=== PATIENT | female | born 1945 | race Caucasian/White ===

== ENCOUNTER → 2016-07-03 | Outpatient (CLI) | payer OTHER ==
--- NOTE | 2016-07-03 11:17 | DX ---
Hip Unilateral Min 2 Views Right History: SUBACUTE PAIN R HIP WITH DX OF SQUAMOUS CELL LUNG CANCER AND CONCERN FOR OCCULT FX OR METS VS OTHER Findings: Moderate joint space narrowing is present centrally. No fracture. Impression: Moderate osteoarthritis, right hip.
== END ==
LOC: GIMAGING 10:25
PROVIDERS: ATTEND Family Medicine
DX: M25.551 Pain in right hip (principal); M16.11 Unilateral primary osteoarthritis, right hip; C34.90 Malignant neoplasm of unspecified part of unspecified bronchus or lung
CPT/HCPCS: 73502-PO

== ENCOUNTER 2016-07-08 10:28 | Inpatient (IN) | payer OTHER ==
[2016-07-08] MEDS ORDERED: ONDANSETRON 4 MG/2 ML VIAL IVP ONE (11:46)
[2016-07-08 12:01] LABS: % IMMATURE GRANULYOCYTES 1.2 % (0.0-1.1); ABSOLUTE IMMATURE GRANULOCYTES 0.17 10^3/uL (0.00-0.10); ADD DIFF? NO; ADD MORPH? NO; ADD SCAN? NO; ATYPICAL LYMPHOCYTE FLAG 20 (0-99); FRAGMENT RBC FLAG 0 (0-99); HEMOGLOBIN 9.2 g/dL (12.6-16.3); LEFT SHIFT FLG 0 (0-99); LIPEMIA HEMOLYSIS FLAG 80 (0-99); MEAN CELL HEMOGLOBIN 29.2 pg (27.9-34.1); MEAN CELL HEMOGLOBIN CONCENTR. 31.7 g/dL (32.4-36.7); MEAN CELL VOLUME 92.1 fL (81.5-99.8); MEAN PLATELET VOLUME 8.9 fL (8.7-11.7); PLATELET CLUMPS FLAG 0 (0-99); PLATELET COUNT 379 10^3/uL (150-400); RED BLOOD CELL COUNT 3.15 10^6/uL (4.18-5.33); RED CELL DISTRIBUTION WIDTH 19.9 % (11.5-15.2)
[2016-07-08 12:11] LABS: POTASSIUM 3.8 mEq/L (3.5-5.2)
[2016-07-08 12:12] LABS: ANION GAP 9 mEq/L (8-16); CARBON DIOXIDE 26 mEq/l (22-31); CHLORIDE 98 mEq/L (97-110); CREATININE 0.7 mg/dL (0.6-1.0); GLOMERULAR FILTRATION RATE > 60; GLUCOSE 95 mg/dL (70-100); SODIUM 133 mEq/L (134-144)
--- NOTE | 2016-07-08 14:09 | EDPHY ---
H & P Smoking Status: Former smoker Time Seen by Provider: 07/08/16 10:45 HPI/ROS: CHIEF COMPLAINT: Right hip pain HISTORY OF PRESENT ILLNESS: 70-year-old female presents to the emergency department with and son complaining of severe ongoing pain in her right hip for several months. She denies any known trauma or injury. She has a history of small cell carcinoma that was treated most recently with chemotherapy. She became extremely thrombocytopenic and per her son, Dr. Roger Nieves, the patient is no longer going to undergo chemo as she did not tolerate this. She denies back pain. She has pain in her right hip especially when she tries to bear weight or walk. She lives independently with her . She denies chest pain or difficulty breathing. Denies headache. Denies bowel or bladder incontinence. Denies numbness or tingling in upper or lower extremities. The states that she has not been eating much lately. She has had weight loss. Yesterday she had 3 cans of Ensure and nothing else to eat. The and son are both worried that she is not doing well at home. REVIEW OF SYSTEMS: Constitutional: No fever, no chills. Eyes: No double or blurry vision. ENT: No sore throat. Respiratory: No cough, no shortness of breath. Cardiac: No chest pain. Gastrointestinal: No abdominal pain, vomiting or diarrhea. Genitourinary: No dysuria. Musculoskeletal: Right hip pain as above. No neck or back pain. Skin: No rashes. Neurological: No headache. (Ruthy Carreon) Past Medical/Surgical History: Small cell carcinoma diagnosed in 2014 treated with 2 rounds of chemotherapy, hypothyroidism (Ruthy Carreon) Social History: and lives independently with her (Ruthy Carreon) Physical Exam: General Appearance: Alert, no distress. 130/65 Eyes: Pupils equal and round. Extraocular motions are all intact. ENT: Mouth: Mucous membranes moist. Respiratory: No wheezing, rhonchi, or rales, lungs are clear to auscultation. Cardiovascular: Regular rate and rhythm. Gastrointestinal: Abdomen is soft and nontender, no masses, no rebound or guarding, bowel sounds normal. Neurological: Alert and oriented x 3, cranial nerves II through XII grossly intact Skin: Warm and dry, no rashes. Musculoskeletal: Nontender to palpate along the cervical, thoracic or lumbar spine. Neck is supple. Extremities: Full range of motion and no peripheral edema. Straight leg raise is negative bilaterally. Full range of motion of her right hip, knee and ankle without pain or difficulty. Her gait is not tested. Psychiatric: Patient is oriented X 3, there is no agitation. (Ruthy Carreon) Constitutional: Initial Vital Signs Blood Pressure 130/65 H 07/08/16 10:32 O2 Delivery Mode Room Air O2 (L/minute) 1.5 Allergies/Adverse Reactions: Penicillins Allergy (Intermediate, Verified 07/08/16 10:38) Hives Sulfa (Sulfonamide Antibiotics) Allergy (Mild, Verified 07/08/16 10:38) RASH/ITCH Home Medications: Medication Instructions Recorded Acetaminophen [Tylenol ES 500 mg 500 mg PO TID PRN 07/08/16 (*)] Codeine Sulfate [CODEINE SULFATE] 15 mg PO HS 07/08/16 Diclofenac Sodium [Voltaren] 1 g TP QID PRN 07/08/16 Levothyroxine [Synthroid 88 mcg 88 mcg PO DAILY06 07/08/16 (*)] Promethazine HCl [Phenergan 25mg 25 mg PO PRN PRN 07/08/16 (*)] Medical Decision Making - Diagnostics Imaging: MRI of the right hip reveals no obvious fracture. No osteolytic or metastatic lesions. This was reported to me by Dr. Emir Baldwin at 2:00 p.m.. (Ruthy Carreon ) ED Course/Re-evaluation: 70-year-old female presents with right hip pain. Denies any known trauma or injury. She does have a history of small-cell cancer. Patient had negative x- rays of her right hip revealing osteoarthritis 2 days ago. Patient has not had any additional imaging of her right hip. The patient is now having difficulty getting around. She has not had much of an appetite because the pain in her right hip. The patient was given 2 mg of IV morphine x2 for pain relief. CBC reveals signs of anemia however this is chronic. Platelet count is normal. (Ruthy Carreon) I did not see this patient while she was in the emergency department. However her care was discussed with the PA while the patient was in the department. I agree with treatment plan and management (Tino Butler) Differential Diagnosis: 70-year-old female presents with severe right hip pain. She is having difficulty getting around. She has not been eating or doing well on her own at home. MRI of the right hip revealed no obvious fractures. No osteolytic or metastatic lesions. I talked with the patient as well as family at bedside regarding admission to the hospital versus discharge home. Because the patient continues to have ongoing pain in her right hip and is having difficulty getting around at home, I recommended admission to the hospital. Family agrees. Also think that further workup including possible MRI of her lumbar spine may be necessary since cause for her right hip pain was not found on MRI of her right hip. Patient will be admitted to Dr. Yoan Olsen to the medical-surgical floor. (Ruthy Carreon) - Data Points Laboratory Results: Laboratory Results 07/08/16 11:25 07/08/16 11:25 Medications Given: Discontinued Medications Ketorolac Tromethamine (Toradol) 30 mg IVP ONCE ONE Stop: 07/08/16 15:06 Last Admin: 07/08/16 15:47 Dose: 30 mg Morphine Sulfate (Morphine) 2 mg IVP EDNOW ONE Stop: 07/08/16 11:47 Last Admin: 07/08/16 12:10 Dose: 2 mg Morphine Sulfate (Morphine) 2 mg IVP EDNOW ONE Stop: 07/08/16 12:40 Last Admin: 07/08/16 12:40 Dose: 2 mg Ondansetron HCl (Zofran) 4 mg IVP EDNOW ONE Stop: 07/08/16 11:47 Last Admin: 07/08/16 12:10 Dose: 4 mg Departure - Departure Disposition: [facility] Inpatient Acute Clinical Impression: Right hip pain, Squamous cell carcinoma of right lung Condition: Good
[2016-07-08] MEDS ORDERED: PROMETHAZINE HCL 25 MG/ML INJ IVP PRN (15:05)
[2016-07-08] MEDS ORDERED: KETOROLAC 30 MG/1 ML SDV IVP ONE (15:05)
[2016-07-08] MEDS ORDERED: ACETAMINOPHEN 325 MG TAB PO PRN (15:05)
[2016-07-08] MEDS ORDERED: ONDANSETRON 4 MG/2 ML VIAL IVP PRN (15:05)
[2016-07-08 15:21] LABS: SEDIMENTATION RATE 145 MM/HR (0-30)
[2016-07-08] MEDS: HYDROCODONE/APAP 5/325 TAB PO PRN ×2 (15:46→22:32)
--- NOTE | 2016-07-08 16:08 | GHP ---
[f rep st] HISTORY AND PHYSICAL DATE OF ADMISSION: 07/08/2016 CHIEF COMPLAINT: Right hip pain. HISTORY OF PRESENT ILLNESS: This is a 70-year-old female with history of small cell carcinoma of th e lung, diagnosed in 2014, treated with 2 rounds of chemotherapy as well as radiation and left lobec mag, who presents to the emergency department today with worsening right hip pain. The patient has had chronic hip pain, however, over the past 24 hours she has gotten to the point where she is unab le to ambulate at home. She has tried taking 5 mg of hydrocodone without any help. She has also tr ied diclofenac cream as well as a Lidoderm patch. She denies any recent trauma. She denies any num bness or weakness in her leg. The pain is worse with ambulation and gets better with rest. The patient was resumed on chemotherapy about 3 months ago and has lost 30 pounds since. She is fol lowed by Dr. Garay, who has since stopped her on traditional chemotherapy and has referred her to Dr. Spear at the [facility] to consider immunotherapy in a study. PAST MEDICAL HISTORY: 1. Squamous cell carcinoma of the lung treated in 2014. 2. Hypothyroidism. PAST SURGICAL HISTORY: 1. Medication port placement. 2. Left lobectomy. 3. Total abdominal hysterectomy. HOME MEDICATIONS: Reviewed. Refer to [facility] for details. ALLERGIES: Penicillin and sulfa. SOCIAL HISTORY: The patient lives independently with her in [place]. Her son, Dr. Roger alaniz, in the primary care provider in [place]. She has a 30 pack-year history of smoking, but quit some time ago. She denies any alcohol or illicit drug use. FAMILY HISTORY: Reviewed and noncontributory. REVIEW OF SYSTEMS: Comprehensive 10-point review of systems was done and is negative except for as mentioned in the HPI. PHYSICAL EXAMINATION: VITAL SIGNS: Blood pressure 128/79, pulse of 100, respiratory rate 16, O2 sa turation 89% on room air, 98% on 1.5 L. Temperature was not recorded. HEAD: Normocephalic, atraum atic. EYES: PERRLA. Sclerae anicteric. MOUTH: Moist mucous membranes. NECK: Supple. No lymph adenopathy. CARDIOVASCULAR: S1, S2. No JVD. No lower extremity edema. PULMONARY: Lungs are suleiman ar. No wheezes, rales, or rhonchi. ABDOMEN: Soft, nontender, nondistended. No guarding or reboun d tenderness. Normoactive bowel sounds. EXTREMITIES: No clubbing or cyanosis. NEURO: Cranial ne rves 2-12 grossly intact. No focal motor or sensory deficits. MUSCULOSKELETAL: Negative MARK joseline t on the right. There is no pain with passive range of motion of the right hip. There is equivocal straight leg raising test on the right. NEUROLOGIC: Cranial nerves 2-12 grossly intact. Like I s aid before, DTRs are symmetric, 2+ at the patella, with no hyperreflexia. DIAGNOSTICS: WBC 13.9, hemoglobin 9.2, hematocrit 29, platelets 379. Sodium 133, potassium 3.8, ch loride 98, BUN 15, creatinine 0.7, glucose 95, MRI of the hip was done. Final read is pending. Pre liminary read was negative for obvious fracture, osteolytic, or metastatic lesions. ASSESSMENT: This is a 70-year-old female with history of small cell carcinoma of the lung, presenti ng with: 1. Failure to thrive due to below. 2. Intractable right hip pain of unclear etiology. 3. Severe protein-calorie malnutrition with 30 pounds of weight loss in the past 2 months. 4. Leukocytosis without any obvious source of infection. 5. Mild hyponatremia. 6. Mild anemia, without obvious bleeding. PLAN: 1. Admit to the oncology floor. 2. MRI of the lumbar spine to evaluate for metastatic lesions to account for referred pain to her r ight hip. 3. PT, OT evaluation. 4. Check ESR and CRP to evaluate for underlying evidence for infectious or inflammatory process cau sing her pain. 5. Oncology consultation. 6. The patient requests to be DNR status and is thinking about pursuing hospice, but the patient is still unsure of this decision. 7. Consider Orthopedic consult to consider steroid injection of the right hip if the lumbar spine d oes not reveal any lesions to see if this would help her pain. /[id number]/MODL
[2016-07-08] MEDS ORDERED: ACETAMINOPHEN 500 MG TAB PO PRN (18:53)
[2016-07-08] MEDS ORDERED: GADOBUTROL 10 ML VIAL IVP ONE (19:11)
[2016-07-09] MEDS: LEVOTHYROXINE 88 MCG TAB PO SCH (05:14)
[2016-07-09] MEDS: HYDROCODONE/APAP 5/325 TAB PO PRN ×3 (05:15→22:10)
[2016-07-09 06:14] LABS: ALANINE AMINOTRANSFERASE 35 IU/L (9-52); ALBUMIN 2.8 g/dL (3.5-5.0); ALKALINE PHOSPHATASE 88 IU/L (38-126); ANION GAP 7 mEq/L (8-16); ASPARTATE AMINOTRANSFERASE 29 IU/L (14-46); BILIRUBIN,TOTAL 0.4 mg/dL (0.1-1.4); CALCIUM 9.8 mg/dL (8.5-10.4); CARBON DIOXIDE 27 mEq/l (22-31); CHLORIDE 100 mEq/L (97-110); CREATININE 0.7 mg/dL (0.6-1.0); GLOMERULAR FILTRATION RATE > 60; GLUCOSE 94 mg/dL (70-100); SODIUM 134 mEq/L (134-144); TOTAL PROTEIN 5.9 g/dL (6.3-8.2)
[2016-07-09 06:21] LABS: HEMATOCRIT 23.9 % (38.0-47.0); HEMOGLOBIN 7.5 g/dL (12.6-16.3); MEAN CELL HEMOGLOBIN 29.3 pg (27.9-34.1); MEAN CELL HEMOGLOBIN CONCENTR. 31.4 g/dL (32.4-36.7); MEAN CELL VOLUME 93.4 fL (81.5-99.8); RED BLOOD CELL COUNT 2.56 10^6/uL (4.18-5.33); RED CELL DISTRIBUTION WIDTH 19.9 % (11.5-15.2)
[2016-07-09] MEDS ORDERED: MAGNESIUM HYDROXIDE 30 ML UDCUP PO PRN (09:57)
[2016-07-09] MEDS ORDERED: BISACODYL 10 MG SUPP PR PRN (09:57)
[2016-07-09] MEDS ORDERED: POLYETHYLENE GLYCOL 3350 17 GM PKT PO PRN (09:57)
[2016-07-09] MEDS ORDERED: LACTULOSE 20 GM/30 ML UDCUP PO PRN (09:57)
[2016-07-09] MEDS: ENOXAPARIN 40 MG/0.4 ML SYR SC SCH (10:15)
[2016-07-09] MEDS: DEXAMETHASONE 4 MG/ML VIAL IVP SCH ×2 (14:07→22:18)
[2016-07-09] MEDS: PANTOPRAZOLE SODIUM 40 MG TAB PO SCH ×2 (14:08→22:10)
--- NOTE | 2016-07-09 14:30 | GCON ---
[f rep st] CONSULTATION MEDICAL ONCOLOGY FOLLOWUP CONSULTATION DATE OF CONSULTATION: 07/09/2016 REFERRING PHYSICIAN: Hoa Renteria MD REASON FOR CONSULTATION: 1. 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 2. Pain control. RECOMMENDATIONS: 1. Agree with 1 dose of Toradol to see if that helps her pain. 2. Place her on dexamethasone 4 mg twice a day, also to see if this will help her back pain. 3. As far as antitumor therapy is concerned, she is currently being evaluated for a clinical trial at [facility]. If she is a candidate, that would be a reasonable choice. If she is not a candidate, however, and this is the only area that is symptomatic, we could consider radiation to the L3 vertebral body to try to improve her pain on a long-term basis. ASSESSMENT: This 70-year-old white female was diagnosed in the latter part of 2014 with a squamous cell carcinoma of the right lung. She had a paraspinal tumor at that time. There was also a 2 x 1 cm precarinal lymph node and small right peritracheal lymph nodes. Biopsy showed poorly differentia enoc squamous cell carcinoma. She had a lobectomy and mediastinoscopy in April 2015. The tumor w as approximately 4 cm in maximum diameter and a proximal margin was positive. She had adjuvant radi ation therapy, which completed in July 2015. In September 2015, she had an FDG avid mass develop along h er mediastinal border. She had stereotactic radiosurgery with Dr. Perry in [place] at that time. T his was completed in November 2015. Her CT scan in March 2016 showed recurrent disease in her chest. She did not have any targetable mutations, and her PD-L1 testing was low. She had an opinion with Dr. Spear at [facility], who recommended palliative chemotherapy with carboplatin and Gemzar. She received 2 cycles of chemotherapy, but unfortunately developed progressive disease in the right hilum. Over the past couple of months, she has had increasing pain in her low right back and right hip. It has not been radiating down her leg. She has also had 25-30 pounds weight loss, which she attribut es to pain and not being hungry. She is now here for pain control and further evaluation. The MRI of her lumbar spine shows a lesion in the right side of L3 with some foraminal impingement. This lesion is consistent with metastatic disease. I think taking a 2-pronged approach is appropri ate. 1. First would be to try to get her pain under adequate control and this could be with nonsteroidal s, but also she may benefit from dexamethasone. 2. We also need to make a decision about long-term pain control which in this localized area could be dealt with, with external beam radiation therapy versus participation in a clinical trial. She i s probably not a great candidate for additional cytotoxic chemotherapy. HISTORY OF PRESENT ILLNESS: Please see assessment. PAST MEDICAL HISTORY: Remarkable for hypothyroidism. FAMILY HISTORY: Unknown since she was adopted. SOCIAL HISTORY: The patient quit smoking approximately 35 years ago. She does not use alcohol. Erasmo najera lives with her . She tells me that their bedroom, unfortunately, is up the stairs, and she is having a hard time getting up there. REVIEW OF SYSTEMS: Remarkable for pain in her low back, pain in the right hip, decreased appetite, and weight loss. She also has an intermittent cough. 10-system review is otherwise unremarkable. LABORATORY EXAM: Sodium of 134, potassium 4.0, creatinine of 0.7, albumin of 2.8. Her CBC shows a white count of 8.14, hemoglobin of 7.5, and a platelet count of 309,000. Thank you very much for allowing us to have the opportunity to participate in this pleasant woman's oncologic care. We will continue to follow along with you during this hospitalization and as needed beyond. /[id number]/MODL
--- NOTE | 2016-07-09 15:38 | HOSPPROG ---
Hospitalist Progress Note Assessment/Plan: #Acute right LE pain: new metastatic lesion L3 with foraminal impingement. Denies neuropathic pain. Trial Toradol/dex. Decreased dose of oral opioids due to delirium. Long-term control is radiation or exp biologic trial at [facility] #Mild encephalopathy: Intermittent delirium: per son, has been waxing/waning for weeks. Decrease opioids here. trial nonopioids therapies. Check UA. No other infectious sxs #Right lung small cell carcinoma now with new metastases: s/p lobectomy (Apr ), adjuvant XRT July, stereotactic radiosurgery -has seen Dr. Spear at [facility] who recs palliative Gemzar, carboplatin #Hypothyroidism: LT4 #Diet: regular #DVT ppx: Lovenox #Goals: I spoke with pt, in room and son on phone in regards to treatment plan. Expressed hospice eval would be valuable; son agrees. Time spent on visit: 60 min in which >50% spent counseling pt and family on goals, prognosis and hospice. Subjective: pain better controlled this afternoon Objective: Vital Signs Temp Pulse Resp BP Pulse Ox 36.6 C 93 16 137/74 H 90 L 07/09/16 08:49 07/09/16 10:40 07/09/16 08:49 07/09/16 10:40 07/09/16 10:40 Laboratory Results 07/09/16 06:15 07/09/16 05:10 07/08/16 07/09/16 07/10/16 05:59 05:59 05:59 Intake Total 500 Output Total 600 Balance -100 - Physical Exam Constitutional: no apparent distress Eyes: PERRL Ears, Nose, Mouth, Throat: dry mucous membranes Cardiovascular: regular rate and rhythym Respiratory: no respiratory distress, no rales or rhonchi Gastrointestinal: normoactive bowel sounds, soft, non-tender abdomen Genitourinary: no bladder fullness Skin: warm Musculoskeletal: full muscle strength, other (TTP right hip/thigh) Neurologic: CN II-XII Intact, other (alert to self, place. Not date. Slow to answer questions) ICD10 Worksheet Patient Problems: Problems Problem Status Onset Right hip pain Acute Squamous cell carcinoma of right lung Acute
[2016-07-09] MEDS: KETOROLAC 15 MG/1 ML SDV IVP SCH ×2 (18:08→23:29)
[2016-07-09] MEDS ORDERED: MIRTAZAPINE 15 MG TAB PO SCH (21:00)
[2016-07-09] MEDS: SENNOSIDES/DOCUSATE SODIUM TAB PO SCH (22:09)
[2016-07-09] MEDS: PROMETHAZINE HCL 25 MG TAB PO PRN (22:09)
[2016-07-10] MEDS: KETOROLAC 15 MG/1 ML SDV IVP SCH ×2 (05:55→12:21)
[2016-07-10] MEDS: LEVOTHYROXINE 88 MCG TAB PO SCH (05:55)
[2016-07-10 06:11] LABS: HEMATOCRIT 30.4 % (38.0-47.0); HEMOGLOBIN 9.6 g/dL (12.6-16.3); LIPEMIA HEMOLYSIS FLAG 80 (0-99); MEAN CELL HEMOGLOBIN 28.7 pg (27.9-34.1); MEAN CELL HEMOGLOBIN CONCENTR. 31.6 g/dL (32.4-36.7); PLATELET COUNT 456 10^3/uL (150-400); RED BLOOD CELL COUNT 3.34 10^6/uL (4.18-5.33); RED CELL DISTRIBUTION WIDTH 19.7 % (11.5-15.2)
[2016-07-10 06:22] LABS: ALANINE AMINOTRANSFERASE 51 IU/L (9-52); ALBUMIN 3.5 g/dL (3.5-5.0); ALKALINE PHOSPHATASE 104 IU/L (38-126); ANION GAP 10 mEq/L (8-16); ASPARTATE AMINOTRANSFERASE 55 IU/L (14-46); BILIRUBIN,TOTAL 0.4 mg/dL (0.1-1.4); CALCIUM 10.4 mg/dL (8.5-10.4); CARBON DIOXIDE 28 mEq/l (22-31); CHLORIDE 99 mEq/L (97-110); CREATININE 0.8 mg/dL (0.6-1.0); GLOMERULAR FILTRATION RATE > 60; GLUCOSE 131 mg/dL (70-100); POTASSIUM 4.9 mEq/L (3.5-5.2); SODIUM 137 mEq/L (134-144); TOTAL PROTEIN 6.9 g/dL (6.3-8.2)
[2016-07-10 07:05] LABS: COLOR YELLOW; LEUKOCYTE ESTERASE,URINE NEGATIVE (NEGATIVE); NITRITE,URINE NEGATIVE (NEGATIVE)
[2016-07-10 08:32] VITALS: RESP 18
[2016-07-10] MEDS: PANTOPRAZOLE SODIUM 40 MG TAB PO SCH (08:38)
[2016-07-10] MEDS: DEXAMETHASONE 4 MG/ML VIAL IVP SCH (08:38)
[2016-07-10] MEDS: SENNOSIDES/DOCUSATE SODIUM TAB PO SCH (08:39)
[2016-07-10] MEDS: ENOXAPARIN 40 MG/0.4 ML SYR SC SCH (08:39)
--- NOTE | 2016-07-10 09:36 | SOAPPROG ---
SOAP Progress Note Assessment/Plan: Assessment: 1. L3 metastatic lesion - Pain is much improved on Dexamethasone 2. NSCLC Plan: 1. Ok for d/c to home on dexamethasone with a PPI. 2. She will need some more definitive Rx for L3 met. Options include Clinical [place] [facility] [place] systemic chemo, or XRT. Subjective: Pain is markedly improved. She is sitting on the edge of her bed ordering breakfast. Objective: Vital Signs Temp Pulse Resp BP Pulse Ox 36.4 C 83 18 120/75 97 07/10/16 08:00 07/10/16 08:00 07/10/16 08:00 07/10/16 08:00 07/10/16 08:00 Laboratory Results 07/10/16 05:58 07/10/16 05:58 07/08/16 07/09/16 07/10/16 23:59 23:59 23:59 Intake Total 500 150 Output Total 600 400 550 Balance -600 100 -400 Physical Exam - Physical Exam General Appearance: alert, no apparent distress Respiratory: lungs clear Cardiac/Chest: regular rate, rhythm Abdomen: normal bowel sounds Skin: pallor ICD10 Worksheet Patient Problems: Problems Problem Status Onset Right hip pain Acute Squamous cell carcinoma of right lung Acute
[2016-07-10] MEDS ORDERED: MAGNESIUM CITRATE 300 ML BOTTLE PO ONE (11:00)
--- NOTE | 2016-07-10 11:07 | HOSPPROG ---
Hospitalist Progress Note Assessment/Plan: 70 yo F w NSCLC here w hip pain 2/2 met at L3 neuroforamen Acute right LE pain: new metastatic lesion L3 with foraminal impingement. Denies neuropathic pain. Trial Toradol/dex. Decreased dose of oral opioids due to delirium. Long-term control is radiation or exp biologic trial at [facility] considerable improvement w dex needs XRT - I discussed this w son Mild encephalopathy: Intermittent delirium: per son, has been waxing/waning for weeks. Decrease opioids here. trial nonopioids therapies. Check UA. No other infectious sxs per son, she is almost certainly at her recent baseline Right lung small cell carcinoma now with new metastases: s/p lobectomy (Apr) , adjuvant XRT July, stereotactic radiosurgery -has seen Dr. Spear at [facility] who recs palliative Gemzar, carboplatin Hypothyroidism: LT4 constipation: mag citrate Diet: regular DVT ppx: Lovenox Goals: I spoke with pt, in room and son on phone in regards to treatment plan. Expressed hospice eval would be valuable; son agrees dispo: home today > 30 minutes Subjective: considerably better in terms of pain. constipated. anxious for dc. discussed w son (dr martinez) Objective: Vital Signs Temp Pulse Resp BP Pulse Ox 36.4 C 83 18 120/75 97 07/10/16 08:00 07/10/16 08:00 07/10/16 08:00 07/10/16 08:00 07/10/16 08:00 Laboratory Results 07/10/16 05:58 07/10/16 05:58 07/09/16 07/10/16 07/11/16 05:59 05:59 05:59 Intake Total 500 0 150 Output Total 600 600 350 Balance -100 -600 -200 - Physical Exam Constitutional: no apparent distress, appears nourished Eyes: PERRL, anicteric sclera Ears, Nose, Mouth, Throat: moist mucous membranes, hearing normal Cardiovascular: regular rate and rhythym, no murmur, rub, or gallop Respiratory: no respiratory distress, no rales or rhonchi Gastrointestinal: normoactive bowel sounds, soft, non-tender abdomen Genitourinary: no bladder fullness, No gonsalez in urethra Skin: warm, normal color Musculoskeletal: full muscle strength, no muscle tenderness Neurologic: AAOx3 ICD10 Worksheet Patient Problems: Problems Problem Status Onset Right hip pain Acute Squamous cell carcinoma of right lung Acute
--- NOTE | 2016-07-10 11:15 | PDIAF ---
- Diagnosis Diagnosis: metastatic cancer Code Status: Do Not Resuscitate - Medication Management Discharge Medications: Medications to Continue on Transfer Acetaminophen [Tylenol ES 500 mg (*)] 500 mg PO TID PRN 07/08/16 [Last Taken Unknown] Codeine Sulfate [CODEINE SULFATE] 15 mg PO HS 07/08/16 [Last Taken 07/07/16] Diclofenac Sodium [Voltaren] 1 g TP QID PRN 07/08/16 [Last Taken 07/06/16] Levothyroxine [Synthroid 88 mcg (*)] 88 mcg PO DAILY06 07/08/16 [Last Taken ] Promethazine HCl [Phenergan 25mg (*)] 25 mg PO PRN PRN 07/08/16 [Last Taken Unknown] Discharge Medications: Refer to the Discharge Home Medication list for PRN reason. - Orders Services needed: Home Care, Registered Nurse, Physical Therapy, Occupational Therapy Home Care Face to Face: I certify that this patient was under my care and that I had the required [id number] encounter meeting the encounter requirements on the discharge day. My findings support the fact that the patient is homebound as defined in CMS Chapter 7 Medicare Benefits Manual 30.1.1, The condition of the patient is such that there exists a normal inability to leave home and consequently, leaving home would require a considerable and taxing effort. - Follow Up Care Current Providers and Referrals: Carmelina Ortiz MD [Primary Care Provider] -
[2016-07-10 16:30] VITALS: BP 120/77; PULSE 98; TEMP 97.3; O2SAT 94
[2016-07-10] MEDS: HYDROCODONE/APAP 5/325 TAB PO PRN (16:40)
[2016-07-10] MEDS: PROMETHAZINE HCL 25 MG TAB PO PRN (17:09)
--- NOTE | 2016-07-10 18:04 | GDS ---
[f rep st] DISCHARGE SUMMARY DISCHARGE DIAGNOSES: 1. Metastatic lung cancer. 2. Met to L3 with nerve root compression. CONSULTS DURING THIS ADMISSION: Oncology. HOSPITAL COURSE: The patient was admitted. Lumbar spine MRI was obtained and showed severe neurofo raminal narrowing. She was started on dexamethasone with marked improvement in her symptoms. She i s discharged home with dexamethasone, proton pump inhibitor and recommendations for outpatient XRT. Discussed this with Dr. Tino Fernandez. I also discussed it with the patient's son, Roger Nieves, faby ho is a local physician. Prescriptions were dexamethasone, hospital bed and Protonix. /[id number]/MODL
== END 2016-07-10 17:57 | disposition home health service (06) | DRG 542 ==
LOC: OBSVTOIN 15:04 → F1N 15:17
PROVIDERS: ADMIT Family Medicine; ATTEND Internal Medicine
DX: C79.51 Secondary malignant neoplasm of bone (principal); Z85.118 Personal history of other malignant neoplasm of bronchus and lung; G93.40 Encephalopathy, unspecified; E03.9 Hypothyroidism, unspecified; E43 Unspecified severe protein-calorie malnutrition; E87.1 Hypo-osmolality and hyponatremia; Z87.891 Personal history of nicotine dependence; D53.9 Nutritional anemia, unspecified; Z92.3 Personal history of irradiation
CPT/HCPCS: 97116-GP; 97161-GP; 97165-GO; 97530-GO; 97530-GP; A9585; G8978-GP-CK; G8979-GP-CI; G8980-GP-CI; G8987-GO-CI; G8988-GO-CI; J1100; J1650; J1885; J2405